=== PATIENT | female | born 1975 ===

== ENCOUNTER 2018-06-28 13:37 | Outpatient (CLI) | payer OTHER | END 2018-06-28 13:38 | disposition home or self-care (01) | LOC: C.MAMMO 13:37 | DX: Z12.31 Encounter for screening mammogram for malignant neoplasm of breast (principal) ==

== ENCOUNTER 2018-07-18 10:28 | Outpatient (CLI) | payer OTHER | END 2018-07-18 10:29 | disposition home or self-care (01) | LOC: C.RADH 10:28 | DX: M25.562 Pain in left knee (principal) ==

== ENCOUNTER 2018-09-18 08:31 | Outpatient (CLI) | payer OTHER | END 2018-09-18 08:32 | disposition home or self-care (01) | LOC: C.USIC 08:31 ==